=== PATIENT | male | born 1995 | race Caucasian/White ===

== ENCOUNTER 2018-03-19 20:31 | Emergency (ER) | payer SELFPAY ==
[~2018-03-19] VITALS: Ht 188 cm; Wt 140.9 kg
[~2018-03-19 20:31] MED LIST: NO HOME MEDICATIONS
[2018-03-19] MEDS ORDERED: TAMIFLU 75MG75 MG PO ×3 (22:17→22:34)
[2018-03-19 22:31] VITALS: BP 117/71; PULSE 96; TEMP 99.3
== END 2018-03-19 22:35 | disposition home or self-care (01) ==
LOC: COL.ER 20:31
DX: J11.1 Influenza due to unidentified influenza virus with other respiratory manifestations (principal)
CPT/HCPCS: J1885; J2405; J7030

== ENCOUNTER → 2019-10-13 | Outpatient (CLI) | payer BC ==
[~2019-10-13] MED LIST changes: +TAMIFLU 75MG75 MG PO
== END ==
LOC: ZCOL.LAB 14:44
DX: R11.0 Nausea (principal); R51 Headache; Z20.828 Contact with and (suspected) exposure to other viral communicable diseases